=== PATIENT | male | born 1965 | race American Indian/Alaskan Native ===

== ENCOUNTER 2017-01-14 21:42 | Emergency (ER) | payer SELFPAY ==
[2017-01-14] MEDS ORDERED: NORVASC PO ONE (22:30)
[2017-01-15] MEDS ORDERED: CATAPRES ONE (04:18)
[2017-01-15] MEDS ORDERED: CATAPRES PO ONE (04:18)
--- NOTE | 2017-01-15 04:51 | Emergency Department Report ---
ED General Adult HPI - General Chief complaint: High BP Stated complaint: HBP Time Seen by Provider: 01/15/17 04:44 Source: patient Mode of arrival: Ambulatory Limitations: No Limitations - History of Present Illness Initial comments: Patient is a 51-year-old male with a history of hypertension and diabetes who presents to the ER with hypertension. Patient reports he was getting a physical wellness exam for his new job and found to be hypertensive. Patient reports he is supposed to take Norvasc 10 mg daily and another antihypertensive she cannot recall, but he has not taken his meds in 6 months. Otherwise patient denies fevers, chills, headaches, dizziness, vision changes, hearing changes, nausea, vomiting, diarrhea, shortness of breath, chest pain, abdominal pain, extremity pain, or sick contacts. pt given norvasc 10mg in triage Severity scale (0 -10): 0 - Related Data Previous Rx's Medication Instructions Recorded Last Taken Type Chlorthalidone [Thalitone] 25 mg PO QDAY #30 tablet 01/15/17 Unknown Rx amLODIPine [Norvasc] 10 mg PO DAILY #30 tab 01/15/17 Unknown Rx glyBURIDE [Glyburide] 5 mg PO DAILY #30 tablet 01/15/17 Unknown Rx Allergies Allergy/AdvReac Type Severity Reaction Status Date / Time No Known Allergies Allergy Unverified 01/14/17 22:19 ED Review of Systems ROS: Stated complaint: HBP Other details as noted in HPI Comment: All other systems reviewed and negative ED Past Medical Hx - Past Medical History Previous Medical History?: Yes Hx Hypertension: Yes Hx Diabetes: Yes - Surgical History Past Surgical History?: No - Social History Smoking Status: Never Smoker Substance Use Type: None - Medications Home Medications: Home Medications Medication Instructions Recorded Confirmed Last Taken Type Chlorthalidone [Thalitone] 25 mg PO QDAY #30 tablet 01/15/17 Unknown Rx amLODIPine [Norvasc] 10 mg PO DAILY #30 tab 01/15/17 Unknown Rx glyBURIDE [Glyburide] 5 mg PO DAILY #30 tablet 01/15/17 Unknown Rx ED Physical Exam - General Limitations: No Limitations General appearance: alert, in no apparent distress - Head Head exam: Present: atraumatic, normocephalic - Eye Eye exam: Present: normal appearance - ENT ENT exam: Present: mucous membranes moist - Neck Neck exam: Present: normal inspection - Respiratory Respiratory exam: Present: normal lung sounds bilaterally. Absent: respiratory distress - Cardiovascular Cardiovascular Exam: Present: regular rate, normal rhythm. Absent: systolic murmur, diastolic murmur, rubs, gallop - GI/Abdominal GI/Abdominal exam: Present: soft, normal bowel sounds - Rectal Rectal exam: Present: deferred - Extremities Exam Extremities exam: Present: normal inspection - Back Exam Back exam: Present: normal inspection - Neurological Exam Neurological exam: Present: alert, oriented X3 - Psychiatric Psychiatric exam: Present: normal affect, normal mood - Skin Skin exam: Present: warm, dry, intact, normal color. Absent: rash ED Course Vital Signs 01/14/17 01/14/17 01/15/17 22:19 22:33 04:10 Temperature 98.4 F 97.6 F Pulse Rate 91 H 91 H 75 Respiratory 18 14 Rate Blood Pressure 239/151 239/151 Blood Pressure 239/150 [Right] O2 Sat by Pulse 95 100 Oximetry 01/15/17 01/15/17 04:36 05:01 Temperature Pulse Rate 71 Respiratory 17 Rate Blood Pressure 207/131 Blood Pressure [Right] O2 Sat by Pulse 98 95 Oximetry - Reevaluation(s) Reevaluation #1: 01/15/17 04:52 Repeat BP: 201/110, ordered labetalol 20mg IVP Reevaluation #2: 01/15/17 05:56 Repeat BP: 184/117, HR: 70, no further intervention at this time, I do not wish to drop his BP any further. Pt is completely asymptomatic, will refill 2 of his anti-HTN meds and he will follow up with the clinic for further management ED Medical Decision Making - Lab Data Result diagrams: 01/15/17 04:54 01/15/17 04:54 - EKG Data -: EKG Interpreted by Me - EKG Data When compared to previous EKG there are: previous EKG unavailable 01/15/17 05:49 Time 0544: NSR at 70 bpm, QTc:455ms, normal axis, no LVH, TWI II, aVF, I, aVL, V5,V6, (-)ST/T changes, no STEMI, no prior EKG - Medical Decision Making I reviewed patient's old medical records he had from [facility], but there were 6 anti-HTN meds on the list. Pt reports he was in heart failure at that time, which resolved. Of the meds listed I will give him a Rx for the norvasc 10mg and chlorthalidone 25mg daily and his glyburide 5mg for his DM Critical care attestation.: If time is entered above; I have spent that time in minutes in the direct care of this critically ill patient, excluding procedure time. ED Disposition Clinical Impression: HTN (hypertension), Diabetes mellitus Disposition: DISCHARGED TO HOME OR SELFCARE Is pt being admited?: No Condition: Stable Instructions: Diabetes Mellitus Type 2 in Adults (ED), Hypertension (ED) Prescriptions: amLODIPine [Norvasc] 10 mg PO DAILY #30 tab Chlorthalidone [Thalitone] 25 mg PO QDAY #30 tablet glyBURIDE [Glyburide] 5 mg PO DAILY #30 tablet Referrals: [facility] [Outside] - 2-3 Days (PLEASE MAKE AN APPT WITH THIS CLINIC FOR FOLLOW UP)
[2017-01-15] MEDS ORDERED: NORMODYNE IV ONE (04:52)
[2017-01-15 05:09] LABS: Basophils % (Auto) 0.8 % (0.0-1.8); Eosinophils % (Auto) 2.3 % (0.0-4.3); Hematocrit 44.6 % (35.5-45.6); Hemoglobin 15.4 gm/dl (11.8-15.2); Mean Corpuscular HGB Conc 35 % (32-34); Mean Corpuscular Hemoglobin 29 pg (28-32); Mean Corpuscular Volume 84 fl (84-94); Platelet Count 170 K/mm3 (140-440); Red Blood Count 5.29 M/mm3 (3.65-5.03); Red Cell Distribution Width 13.9 % (13.2-15.2); White Blood Count 8.5 K/mm3 (4.5-11.0)
[2017-01-15 05:31] LABS: Anion Gap 17 mmol/L; BUN/Creatinine Ratio 15.83; Blood Urea Nitrogen 19 mg/dL (9-20); Calcium 9.5 mg/dL (8.4-10.2); Carbon Dioxide 29 mmol/L (22-30); Chloride 96.1 mmol/L (98-107); Glucose 281 mg/dL (75-100); Potassium 3.7 mmol/L (3.6-5.0); Sodium 138 mmol/L (137-145)
[2017-01-15 06:03] VITALS: BP 184/118
[2017-01-15 06:12] LABS: Bilirubin,Urine NEG (Negative); Blood,Urine SM (Negative); Ketones,Urine NEG (Negative); Leukocyte Esterase,Urine NEG (Negative); Nitrite,Urine NEG (Negative); Urobilinogen,Urine < 2.0 mg/dL (<2.0); WBC,Urine < 1.0 /HPF (0.0-6.0)
== END 2017-01-15 07:55 | disposition home or self-care (01) ==
LOC: ED 21:42
DX: I10 Essential (primary) hypertension (principal); E11.9 Type 2 diabetes mellitus without complications
CPT/HCPCS: 36415; 80048; 81001; 82962; 85025; 93005; 93010; 96374; 99284